=== PATIENT | male | born 1990 | race Asian ===

== ENCOUNTER 2018-02-07 20:20 | Emergency (ER) | payer MEDICAID ==
[~2018-02-07] VITALS: Ht 170.2 cm; Wt 61.2 kg
[2018-02-07 20:36] VITALS: BP 116/75
[2018-02-07] MEDS ORDERED: IBUPROFEN600 MG ORAL (21:10)
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
[2018-02-07 21:25] VITALS: BP 117/72
--- NOTE | 2018-02-08 10:19 | Diagnostic Imaging Report ---
Indication: Neck Pain Findings: 3 views of the cervical spine were obtained. There is no acute fracture identified. Alignment is normal. The open-mouth odontoid view shows an intact dens and good alignment of the lateral masses with respect to the body of C2. There is no soft tissue swelling. Impression: Negative cervical spine examination.
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
== END 2018-02-07 21:25 | disposition home or self-care (01) ==
LOC: EMR 21:04
DX: V89.2XXA Person injured in unspecified motor-vehicle accident, traffic, initial encounter (principal); S16.1XXA Strain of muscle, fascia and tendon at neck level, initial encounter; S80.01XA Contusion of right knee, initial encounter; V43.52XA Car driver injured in collision with other type car in traffic accident, initial encounter; Y92.488 Other paved roadways as the place of occurrence of the external cause; Z91.048 Other nonmedicinal substance allergy status
CPT/HCPCS: 72040; 99284

== ENCOUNTER 2018-02-09 02:14 | Emergency (ER) | payer MEDICAID ==
[~2018-02-09] VITALS: Ht 170.2 cm; Wt 61.2 kg
[~2018-02-09 02:14] MED LIST: IBUPROFEN600 MG ORAL
[2018-02-09 02:40] VITALS: BP 152/52
[2018-02-09] MEDS ORDERED: MECLIZINE HCL25 MG ORAL (03:29)
[2018-02-09 03:30] VITALS: BP 152/52
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
== END 2018-02-09 03:30 | disposition home or self-care (01) ==
LOC: EMR 02:35
DX: R42 Dizziness and giddiness (principal); R51 Headache
CPT/HCPCS: 70450; 99284

== ENCOUNTER 2018-05-22 16:41 | Emergency (ER) | payer MEDICAID ==
[~2018-05-22] VITALS: Ht 170.2 cm; Wt 61.2 kg
[~2018-05-22 16:41] MED LIST changes: +MECLIZINE HCL25 MG ORAL
--- NOTE | 2018-05-22 16:59 | Emergency Room Report ---
History of Present Illness General Chief Complaint: Eye Problems Source: Patient Present Illness HPI 27-year-old male patient presents the ER complaining left eye redness for the past week. Patient reports symptoms began after going to a concert. Denies exposure to foreign body however states that he has developed a foreign body sensation in his eye. Reports itchiness and crusting of his eye. Reports crusting is white yellow in color. Denies wearing contacts or glasses. Reports that he saw his primary care provider who diagnosed him with sulfacetamide antibiotic drops, states has been using that without relief of symptoms. Denies vision changes. Denies pain with eye movement. Denies fever , chest pain, shortness of breath. Reports recent sexual activity with multiple partners, does not know last time he was tested for STI. Denies dysuria or penile discharge. Denies fever or vomiting. Denies abdominal pain. Denies joint pain. Allergies: Coded Allergies: Dust (Verified Allergy, Unknown, 02/07/18) Patient History Past Medical History: see triage record Reviewed Nursing Documentation: PMH: Agreed; PSxH: Agreed Nursing Documentation-PMH Past Medical History: No Stated History Review of Systems All Other Systems: negative except mentioned in HPI Physical Exam Vital Signs Date Time Temp Pulse Resp B/P (MAP) Pulse Ox O2 Delivery O2 Flow Rate FiO2 05/22/18 16:45 98.8 77 15 110/67 96 Room Air Sp02 EP Interpretation: reviewed, normal General Appearance: well appearing, no apparent distress, alert, GCS 15, non- toxic Head: normocephalic, atraumatic Eyes: left eye Scleral Injection; bilateral eye normal inspection, bilateral eye PERRL, bilateral eye EOMI ENT: hearing grossly normal, normal pharynx, no angioedema, normal voice, uvula midline, moist mucus membranes Neck: full range of motion Respiratory: lungs clear, normal breath sounds, no rhonchi, no respiratory distress, no accessory muscle use, no wheezing, speaking full sentences Cardiovascular #1: regular rate, rhythm, no edema Musculoskeletal: back normal, digits/nails normal, gait/station normal, normal range of motion, non-tender Skin: no rash Lymphatic: no adenopathy Medical Decision Making PA Attestation Dr. Poe is my supervising Physician whom patient management has been discussed with. Diagnostic Impression: Primary Impression: Conjunctivitis, left eye Additional Impression: Encounter for assessment of sexually transmitted disease exposure ER Course Pt. presents to the ED c/o left eye redness and discharge. Ddx considered but are not limited to allergic conjunctivitis, viral conjunctivitis, bacterial conjunctivitis, periorbital cellulitis, URI, sinusitis , keratitis, glaucoma. No reduction in VA, no cilliary flush, no photophobia, no FB sensation, no corneal opacity, low suspicion for keratitis, iritis. No SAMUELS, no vomiting, no fixed pupil, no reduction of VA, no ciliary flush, low suspicion for angle closure glaucoma. See nurses note for visual acuity. Vital signs: are WNL, pt. is afebrile Patient has no signs of surrounding cellulitis, no pain with eye movement, does not require imaging at this time. ER COURSE: Signs and symptoms consistent with conjunctivitis, will provide patient with alternative antibiotic eyedrops. Provide with Ocuflox. Culture of eye taken for GC and Gram stain. Will contact with results. Provide patient with azithromycin and Rocephin while in the ER to cover for gonorrhea chlamydia. Check patient follow-up with STI clinic for further evaluation and treatment. Her sexual partners for need of testing. Drink plenty fluids. Denies dysuria, hematuria, penile discharge, does not require UA at this time. Fluorescein stain shows no uptakes, no sign of corneal abrasion, no dendritic lesions, negative Nereida sign, no restraint, no corneal ulcer. Visual acuity within normal limits, see nurse's note. F/u with ophthalmology. F/u with stem crusher. ER precautions given. DISCHARGE: Rx provided for Ocufloxacin for contact lens wearer. Informed patient to apply to both eyes. Rx provided for Naphcon-A At this time pt. is stable for d/c to home. Patient is resting comfortably, in no acute distress, nontoxic appearing, talking and smilng without difficulty. Will provide printed patient care instructions, and any necessary prescriptions. Patient instructed to follow up with computer graphics illustrator and discuss further follow up with ophthamology and stem crusher. Care plan and follow up instructions have been discussed with the patient prior to discharge. Patient questions asked and answered. Patient reports undestanding and agreement to treatment plan. ER precautions given. Patient instructed to return to ER immediately for any new or worsening of symptoms including but not limited to vision loss, fever, changes in vision. - Please note that this Emergency Department Report was dictated using Dragon tire classifier technology software, occasionally this can lead to erroneous entry secondary to interpretation by the dictation equipment. Last Vital Signs Date Time Temp Pulse Resp B/P (MAP) Pulse Ox O2 Delivery O2 Flow Rate FiO2 05/22/18 16:45 98.8 77 15 110/67 96 Room Air Status: improved Disposition: HOME, SELF-CARE Condition: Stable Scripts Naphazoline Hcl/Phenir Mal (NAPHCON-A EYE DROPS) 15 Ml Drops 15 ML OP BID, #15 ML Prov: Regis Patel 05/22/18 Ofloxacin (OCUFLOX) 5 Ml Drops 2 DROP OP TID, #5 ML Prov: Regis Patel 05/22/18 Patient Instructions: Bacterial Conjunctivitis, [id number], Viral Conjunctivitis Additional Instructions: Follow-up with account management specialist in 24-48 hours. Follow-up with stem crusher. Followup with primary care provider in 2-3 days. Take medications as directed. Patient questions asked and answered. ER precautions given, patient instructed to return to ER immediately for any new or worsening of symptoms. Followup with primary care provider and followup with STI clinic for further evaluation and treatment. Alert sexual partners for need for evaluation and treatment. Wear condoms during sex. Avoid sexual activity for 2 weeks. Drink plenty of fluids. Patient questions asked and answered. ER precautions given, patient instructed to return to ER immediately for any new or worsening of symptoms. Regis Patel May 22, 2018 16:59
[2018-05-22 17:00] VITALS: BP 115/69
[2018-05-22] MEDS ORDERED: Azithromycin 250mg tab ORAL ONE (17:00)
[2018-05-22] MEDS ORDERED: Lidocaine 1% MPF 10mg/ml 5ml INJ ONE (17:00)
[2018-05-22] MEDS ORDERED: Tetracaine 0.5% Opth 4ml Soln LEFT EYE ONE (17:00)
[2018-05-22] MEDS ORDERED: Fluorescein Strips LEFT EYE ONE (17:00)
[2018-05-22] MEDS ORDERED: NAPHCON-A EYE D15 ML OP (17:30)
[2018-05-22] MEDS ORDERED: OCUFLOX5 ML OP (17:30)
[2018-05-22 17:45] VITALS: BP 116/72
== END 2018-05-22 17:45 | disposition home or self-care (01) ==
LOC: EMR 17:01
DX: H10.9 Unspecified conjunctivitis (principal); Z20.2 Contact with and (suspected) exposure to infections with a predominantly sexual mode of transmission
CPT/HCPCS: 87081; 87205; 96372; 99283; J0696; Q0144